=== PATIENT | female | born 1985 | race Two or more races ===

== ENCOUNTER → 2020-07-02 16:01 | Outpatient (BNVA) | payer OTHER, SELFPAY | PROVIDERS: PCP Internal Medicine; Referring Provider Internal Medicine; Visit Provider Student in an Organized Health Care Education/Training Program | DX: M25.50 Pain in unspecified joint (principal) | CPT/HCPCS: 99202 ==

== ENCOUNTER 2020-07-07 10:41 | Outpatient (REF) | payer OTHER, SELFPAY | END 2020-07-07 10:42 | disposition home or self-care (01) | LOC: HO.LAB 10:41 | PROVIDERS: PCP Internal Medicine; Visit Provider Student in an Organized Health Care Education/Training Program | DX: Z13.89 Encounter for screening for other disorder (principal) ==

== ENCOUNTER 2020-07-13 11:10 | Outpatient (REF) | payer OTHER, SELFPAY ==
--- NOTE | 2020-07-13 11:59 | XR_ITS ---
EXAMINATION: BILATERAL HAND X-RAY CLINICAL INFORMATION: Pain COMPARISON: None TECHNIQUE: 3 views of each hand FINDINGS: Bone alignment is normal. No fracture or dislocation is seen. The joint spaces are normal. Bone mineralization is normal. Soft tissues are normal XR/XR hand LT min 3V IMPRESSION: Normal exam.
--- NOTE | 2020-07-13 11:59 | XR_ITS ---
EXAMINATION: LUMBAR SPINE X-RAY CLINICAL INFORMATION: Pain COMPARISON: None TECHNIQUE: 3 views of the lumbar spine FINDINGS: Bone alignment is normal. No fracture or dislocation is seen. Disc spaces are normal. XR/XR thoracic spine 2V IMPRESSION: Normal exam. EXAMINATION: Thoracic spine x-ray CLINICAL INFORMATION: Pain COMPARISON: None. TECHNIQUE: 3 views of the thoracic spine including swimmer's view FINDINGS: Bone alignment is normal. No fracture or dislocation is seen. Disc spaces are normal. IMPRESSION: Normal exam.
--- NOTE | 2020-07-13 11:59 | XR_ITS ---
EXAMINATION: BILATERAL HAND X-RAY CLINICAL INFORMATION: Pain COMPARISON: None TECHNIQUE: 3 views of each hand FINDINGS: Bone alignment is normal. No fracture or dislocation is seen. The joint spaces are normal. Bone mineralization is normal. Soft tissues are normal XR/XR hand RT min 3V IMPRESSION: Normal exam.
--- NOTE | 2020-07-13 11:59 | XR_ITS ---
EXAMINATION: LUMBAR SPINE X-RAY CLINICAL INFORMATION: Pain COMPARISON: None TECHNIQUE: 3 views of the lumbar spine FINDINGS: Bone alignment is normal. No fracture or dislocation is seen. Disc spaces are normal. XR/XR lumbar spine 2-3V IMPRESSION: Normal exam. EXAMINATION: Thoracic spine x-ray CLINICAL INFORMATION: Pain COMPARISON: None. TECHNIQUE: 3 views of the thoracic spine including swimmer's view FINDINGS: Bone alignment is normal. No fracture or dislocation is seen. Disc spaces are normal. IMPRESSION: Normal exam.
[2020-07-13 13:08] LABS: MANUAL DIFF FLAG NO
[2020-07-13 13:15] LABS: Basophils Percent Auto 0.3 % (0-2); Eosinophils Absolute Auto 0.1 X10*3/uL (0.0-0.4); Eosinophils Percent Auto 1.3 % (0-4); Hematocrit 39.6 % (37-47); Hemoglobin 12.6 g/dl (12.0-16.0); Imm Gran Abs Auto 0.02 X10*3/uL (0.00-0.03); Imm Gran Pct Auto 0.3 % (0.0-0.4); Lymphocytes Absolute Auto 1.7 X10*3/uL (1.2-4.9); Lymphocytes Percent Auto 27.7 % (20-40); Mean Corpuscular HGB Conc 31.8 g/dl (31.0-35.0); Mean Platelet Volume 9.4 fL (9.4-12.3); Monocytes Absolute Auto 0.6 X10*3/uL (0.1-1.2); Monocytes Percent Auto 9.7 % (2-11); Neutrophils Absolute Auto 3.8 X10*3/uL (2.0-8.3); Neutrophils Percent Auto 60.7 % (45-73); Platelet Count 303 X10*3/uL (160-400); Red Blood Count 4.35 X10*6/uL (4.20-5.50); Red Cell Distribution Width 12.2 % (11.0-16.0); White Blood Count 6.3 X10*3/uL (4.8-10.8)
[2020-07-13 13:50] LABS: Alanine Aminotransferase 21 U/L (0-31); Albumin Level 4.5 g/dL (3.5-5.0); Alkaline Phosphatase 94 U/L (39-117); Anion Gap 14 (12-20); Aspartate Amino Transferase 17 U/L (5-31); Bilirubin Total 0.3 mg/dL (0.0-1.0); Blood Urea Nitrogen 10 mg/dL (9-16); C Reactive Protein 0.49 mg/dL (< or = 0.50); Calcium 8.8 mg/dL (8.4-10.2); Carbon Dioxide 26 mmol/L (22-29); Chloride 104 mmol/L (96-108); Estimated Glomerular Filt Rate > 60; Glucose Random 108 mg/dL (60-115); Potassium 4.3 mmol/l (3.3-5.1); Rheumatoid Factor < 15.0 IU/mL (<15.0); Sodium 140 mmol/L (135-145); Total Protein 6.9 g/dL (6.5-8.0)
[2020-07-13 14:10] LABS: Thyroid Stimulating Hormone 2.14 uIU/mL (0.32-4.0)
[2020-07-13 14:11] LABS: Erythrocyte Sedimentation Rate 10 MM/HR (0-20)
[2020-07-14 11:32] LABS: Antibody to SS-A Antigen <1.0 NEG AI (<1.0 NEG); Antibody to SS-B Antigen <1.0 NEG AI (<1.0 NEG)
[2020-07-15 03:46] LABS: Cyclic Citrullinated Peptide <16 UNITS
[2020-07-17 14:22] LABS: Vitamin D 25-OH, D2 <4 ng/mL; Vitamin D 25-OH, D3 10 ng/mL; Vitamin D 25-OH, Total 10 ng/mL (30-100)
== END 2020-07-13 11:11 | disposition home or self-care (01) ==
LOC: HO.LAB 11:10
PROVIDERS: PCP Internal Medicine; Visit Provider Student in an Organized Health Care Education/Training Program
DX: M25.50 Pain in unspecified joint (principal)
CPT/HCPCS: 36415; 72070; 72100; 73130; 80053; 82306; 84443; 85025; 85652; 86038; 86039; 86140; 86200; 86235; 86431

== ENCOUNTER → 2020-07-28 12:47 | Outpatient (BNVA) | payer OTHER, SELFPAY | PROVIDERS: PCP Internal Medicine; Referring Provider Internal Medicine; Visit Provider Student in an Organized Health Care Education/Training Program | DX: M25.50 Pain in unspecified joint (principal); E55.9 Vitamin D deficiency, unspecified; M79.7 Fibromyalgia | CPT/HCPCS: 99212 ==

== ENCOUNTER → 2021-02-08 13:40 | Outpatient (BNVA) | payer OTHER, SELFPAY | PROVIDERS: PCP Internal Medicine; Visit Provider Anesthesiology | DX: M06.9 Rheumatoid arthritis, unspecified (principal); M10.9 Gout, unspecified; A69.20 Lyme disease, unspecified; A23.9 Brucellosis, unspecified; M19.90 Unspecified osteoarthritis, unspecified site; M79.7 Fibromyalgia | CPT/HCPCS: 99202 ==

== ENCOUNTER 2022-11-07 11:51 | Outpatient (REF) | payer OTHER, SELFPAY ==
[2022-11-07 12:15] LABS: MANUAL DIFF FLAG NO
[2022-11-07 12:44] LABS: Basophils Percent Auto 0.6 % (0-2); Eosinophils Absolute Auto 0.1 X10*3/uL (0.0-0.4); Eosinophils Percent Auto 1.8 % (0-4); Hematocrit 39.5 % (37.0-47.0); Hemoglobin 12.8 g/dl (12.0-16.0); Imm Gran Abs Auto 0.01 X10*3/uL (0.00-0.03); Imm Gran Pct Auto 0.1 % (0.0-0.4); Lymphocytes Absolute Auto 2.3 X10*3/uL (1.2-4.9); Lymphocytes Percent Auto 34.1 % (20-40); Mean Corpuscular HGB Conc 32.4 g/dl (31.0-35.0); Mean Corpuscular Hemoglobin 29.7 pg (27.0-33.0); Mean Corpuscular Volume 91.6 fL (80.0-98.0); Mean Platelet Volume 9.3 fL (9.4-12.3); Monocytes Absolute Auto 0.6 X10*3/uL (0.1-1.2); Monocytes Percent Auto 9.2 % (2-11); Neutrophils Absolute Auto 3.7 x10*3/uL (2.0-8.3); Neutrophils Percent Auto 54.2 % (45-73); Platelet Count 269 X10*3/uL (160-400); Red Blood Count 4.31 X10*6/uL (4.20-5.50); Red Cell Distribution Width 12.9 % (11.0-16.0); White Blood Count 6.8 X10*3/uL (4.8-10.8)
[2022-11-07 13:28] LABS: Alanine Aminotransferase 31 U/L (0-31); Albumin Level 4.4 g/dL (3.5-5.0); Alkaline Phosphatase 83 U/L (39-117); Anion Gap 14 (12-20); Aspartate Amino Transferase 46 U/L (5-31); Bilirubin Total 0.3 mg/dL (0.0-1.0); Blood Urea Nitrogen 8 mg/dL (9-16); Calcium 9.5 mg/dL (8.4-10.2); Carbon Dioxide 29 mmol/L (22-29); Chloride 102 mmol/L (96-108); Cholesterol 166 mg/dL; Estimated Glomerular Filt Rate > 60; Glucose Random 90 mg/dL (60-115); HDL Cholesterol 32 mg/dL; LDL Cholesterol Calculated 114 mg/dl; Potassium 4.4 mmol/L (3.3-5.1); Sodium 141 mmol/L (135-145); Total Protein 6.9 g/dL (6.5-8.0); Triglycerides 101 mg/dL; Uric Acid 2.3 mg/dL (2.4-5.7)
[2022-11-07 13:46] LABS: Thyroid Stimulating Hormone 0.87 uIU/mL (0.32-4.0); Vitamin D 25-OH Total 36.5 ng/mL (>30)
== END 2022-11-07 11:52 | disposition home or self-care (01) ==
LOC: HO.LAB 11:51
PROVIDERS: PCP Internal Medicine; Visit Provider Internal Medicine
DX: Z00.00 Encounter for general adult medical examination without abnormal findings (principal); E55.9 Vitamin D deficiency, unspecified; E03.9 Hypothyroidism, unspecified; M10.9 Gout, unspecified; D64.9 Anemia, unspecified; E78.5 Hyperlipidemia, unspecified
CPT/HCPCS: 36415; 80053; 80061; 82306; 84443; 84550; 85025

== ENCOUNTER 2023-06-05 13:05 | Outpatient (AMB) | payer OTHER, SELFPAY ==
[2023-06-05 13:17] VITALS: BP 110/76; BMI 23.2
--- NOTE | 2023-06-05 13:17 | A.OFFPC_ITS ---
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 Accompanied by: Child Allergies trazodone Adverse Reaction (Intermediate, Verified 06/05/23 13:33) leg numbness Medication List - Last Reconciled 06/05/23 by Sidra Barth MD alprazolam 2 mg PO BID PRN 30 days aripiprazole 10 mg PO DAILY cholecalciferol (vitamin D3) 25 mcg PO DAILY 90 days diclofenac potassium 50 mg PO BID PRN 5 days docusate sodium 250 mg PO BEDTIME 90 days gabapentin 600 mg (2 x 300 mg) PO TID 30 days lamotrigine mg PO levothyroxine 25 mcg PO QAM lorazepam 1 mg PO BEDTIME lorazepam 2 mg PO BEDTIME PRN quetiapine 25 mg PO BEDTIME sertraline 50 mg PO DAILY Tobacco use date assessed: 12/14/22 Dental Screening Dental Screen Date: 06/05/23 Did you have a dental visit in the last 12 months?: No Did you have a dental problem in the last 6 months where you did not have access to dental care?: No Was dental information given to patient?: Patient has dentist HPI HPI Comments History of Present Illness Details This is a 37-year-old female with fibromyalgia, hypothyroidism, mild major depression and schizophrenia that comes for follow-up on recent labs. On gabapentin for fibromyalgia. TSH was normal. Depression and schizophrenia are stable with medications and this is follow by Psychiatry. Complains of easy bruising and CBC will be order. Labs were discussed and vitamin-D levels are normal on supplements. Still has some diffuse joint pain and fibromyalgia is follow by Rheumatology. [facility] Medical History (Updated 06/05/23 @ 13:56 by Sidra Barth MD) Fibromyalgia Osteoarthritis Brucellosis Lyme disease Gout, arthritis Rheumatoid arthritis Depression with anxiety Hypothyroid Surgical History H/O LEEP H/O tubal ligation History of colposcopy Previous section Family History Father No problems noted. Mother Depression Cancer Brother In good health Mental health disorder Sister In good health Son In good health Daughter In good health Social History Housing: Apartment Alcohol intake: never Patient Tobacco Use Status: Current everyday Tobacco user Tobacco use type: Cigarette Cigarettes Per Day: 10 Years Smoked: 25 e-Cigarette/Vaping Use: Never Used Second Hand Smoke Exposure: No service: No Current occupational status: unemployed and disabled Cognitive needs: No Hearing needs: No Vision needs: No Questionnaire Thrive Questionnaire Date Thrive assessed: 12/14/22 KALLIE-7 AMB Questionnaire KALLIE-7 Date KALLIE - 7 assessed: 12/14/22 Source: Developed by Drs. Pasquale Bangura, Tala Piña, Vince Martinez and colleagues, with an educational nicolas from [employer]. Review of Systems Const All systems reviewed & are unremarkable except as noted in HPI and below Eyes Reports no additional complaints, Denies change in vision and Denies other visual disturbances Card Denies chest pain at rest, Denies chest pain with activity, Denies edema, Denies irregular heart rhythm, Denies claudication, Denies dyspnea, Denies dyspnea on exertion, Denies orthopnea, Denies paroxysmal nocturnal dyspnea and Denies slow heart rate Resp Denies cough, Denies dyspnea and Denies dyspnea on exertion GI Denies abdominal pain, Denies change in bowel habits, Denies excessive flatus, Denies nausea and Denies vomiting Denies urinary incontinence, Denies urinary hesitancy and Denies urinary urgency Musc Denies abnormal gait, Denies atrophy, Denies deformity, Reports arthralgias and Denies limited range of motion Skin/Breast Denies bleeding lesions, Denies changing lesions and Denies rash Neuro Denies abnormal gait and Denies lack of coordination Cedric/Lymph Reports easy bruising Physical exam (Primary Care) Vital Signs: Last Vital Signs BP 110/76 06/05/23 13:17 BMI result Body Mass Index 23.2 Tobacco/Smoking Status: Tobacco use Status Tobacco use date assessed 12/14/22 06/05/23 13:19 Patient Tobacco Use Status Current everyday Tobacco 06/05/23 13:19 Tobacco use type Cigarette 06/05/23 13:19 e-Cigarette/Vaping Use Never Used 06/05/23 13:19 Thrive Assessment: Date of Thrive Assessment Date Thrive assessed 12/14/22 06/05/23 13:19 Eyes General: appearance normal, both eyes and all related structures Eyelids: Yes eyelids normal Conjunctivae: conjunctivae normal Neck Neck: Yes normal visual inspection and Yes supple Resp Effort & Inspection: normal respiratory effort Auscultation: clear to auscultation bilaterally Cardio Jugular venous distension: no JVD Rate: regular rate Rhythm: regular rhythm Heart sounds: S1 normal heart sound present and S2 normal heart sound present Extrem General: Yes full ROM Office Procedures Flu Questionnaire Does the patient have a severe egg allergy?: No Does the patient have severe life threatening allergies?: No Does the patient have a fever or illness today?: No Has the patient ever had Guillain-Colbert Syndrome?: No Has the patient ever had any past reaction to a flu shot?: No Immunizations flu vacc [id number] 6mos up(PF) 60 mcg(15 mcgx4)/0.5 mL IM syringe Performing Provider: Sidra Barth MD Performing Location: [facility] Administered by: SANJEEV Beard on 06/05/23 13:43 Dose Route Admin Location Dispensed Lot Number Expiration Date NDC Public Relations Consultant 0.5 mL IM Right Deltoid 0.5 mL [id number] 03/03/24 95788-383-60 [employer] VIS Given Date VIS Provided VIS Publication Date 06/05/23 Single Vaccine 21 Eligibility Eligibility Date Funding Source Not [facility] Eligible 06/05/23 Private Assessment and Plan Assessment & Plan (1) Hypothyroid: Code(s): E03.9 - Hypothyroidism, unspecified Qualifiers: Hypothyroidism type: unspecified Qualified Code(s): E03.9 - Hypothyroidism, unspecified Plan: Continue levothyroxine. (2) Schizophrenia: Code(s): F20.9 - Schizophrenia, unspecified Plan: Continue Seroquel. Follow-up with psychiatry. (3) Mild major depression: Code(s): F32.0 - Major depressive disorder, single episode, mild Plan: Continue SSRIs. Follow-up with psychiatry. (4) Fibromyalgia: Code(s): M79.7 - Fibromyalgia Plan: Continue gabapentin. Follow-up with rheumatology Orders: Orders Influenza [id number] Immunization Today Z23 - Encounter for immunization Thyroid Stimulating Hormone 6 Months E03.9 - Hypothyroidism, unspecified Complete Blood Count Auto Diff Today D64.9 - Anemia, unspecified IRON PROFILE Today D64.9 - Anemia, unspecified Coding Level of Care Code Est Pt Level 4 (01457) Diagnoses Hypothyroidism, unspecified type E03.9 Hypothyroidism type: unspecified Schizophrenia F20.9 Mild major depression F32.0 Fibromyalgia M79.7 Time Spent (min) 23
== END 2023-06-05 13:49 | disposition home or self-care (01) ==
PROVIDERS: Visit Provider Internal Medicine
DX: E03.9 Hypothyroidism, unspecified (principal); F20.9 Schizophrenia, unspecified; F32.0 Major depressive disorder, single episode, mild; M79.7 Fibromyalgia; Z23 Encounter for immunization
CPT/HCPCS: 90471; 90686; 99214